=== PATIENT | female | born 1950 | race Caucasian/White ===

== ENCOUNTER 2023-02-21 09:16 | Outpatient (CLI) | payer MEDICARE, BC, OTHER, SELFPAY | END 2023-02-21 09:17 | disposition home or self-care (01) | PROVIDERS: PCP Family Medicine; Visit Provider Family Medicine | DX: Z00.00 Encounter for general adult medical examination without abnormal findings (principal); I10 Essential (primary) hypertension; R53.83 Other fatigue; Z13.29 Encounter for screening for other suspected endocrine disorder; Z13.21 Encounter for screening for nutritional disorder | CPT/HCPCS: 80048; 82306; 82607; 82652; 84443 ==